=== PATIENT | female | born 1975 | race Caucasian/White ===

== ENCOUNTER → 2018-01-06 | Outpatient (CLI) | payer MEDICAID ==
[~2018-01-06] MED LIST: ALB17R INH; ALP1 PO; AMOX-362 PO; AUG875 PO; AZI250 PO; BACDS PO; BUTNAS NS; CLIN300C99 PO; CLO1 PO; DEX4 PO; DEXTROSE 5%(*) 100 ML BAG 100 ML IVPB PRN; DIAZ2TAB72 PO; HYDR-4309 PO; HYDR2TAB74 PO; IBUP-1618 PO; IRON1TAB55 PO; LIDOCAINE/SOD BICARB 8.4% SYR ID PRN; LOR5 PO; LOR7.5/325 PO; METH4TAB57 PO; MID PO; NAP500; NS(*) 0.9% 100 ML BAG 100 ML IVPB PRN; NS(*) 0.9% 500 ML BAG 500 ML IV PRN; OMEP-137 PO; OMEP-218 PO; OND4 PO; ONDA4TAB PO; ONDA4TAB9 PO; OXYC-763 PO; OXYC-865 PO; PAN40 PO; PER PO; PRE20 PO; PREN-127 PO; PRO25 PO; PROM-110 PO; RAN150 PO; RANI150C14 PO; [UNRECOGNIZED DRUG - CODE] PO
[2018-01-06 10:47] VITALS: BP 143/83
[2018-01-06 11:31] LABS: PLATELET COUNT, AUTOMATED 339 K/uL (150-450)
[2018-01-06 12:47] VITALS: BP 124/90
[2018-01-06 13:03] VITALS: BP 123/76
[2018-01-06 15:07] VITALS: BP 129/84
== END ==
LOC: SPU 01-05 13:09
PROVIDERS: ATTEND Nurse Practitioner Family
DX: D50.0 Iron deficiency anemia secondary to blood loss (chronic) (principal)
CPT/HCPCS: 83540; 83550; 85025; 86850; 86900; 86901; 86920; P9016; 82040; 82247; 82310; 82374; 82435; 82565; 82947; 84075; 84132; 84155; 84295; 84450; 84460; 84520